=== PATIENT | male | born 1995 | race Caucasian/White ===

== ENCOUNTER 2020-01-11 19:34 | Emergency (ER) | payer OTHER ==
[~2020-01-11] VITALS: Ht 172.7 cm; Wt 90.8 kg
[2020-01-11] MEDS ORDERED: IBUP-1022 PO (21:04)
[2020-01-11 21:11] VITALS: BP 144/81
--- NOTE | 2020-01-11 21:49 | REPVR ---
PROCEDURE INFORMATION: Exam: XR Right Foot Complete Exam date and time: 01/11/2020 7:43 PM Age: 24 years old Clinical indication: Other: Injury TECHNIQUE: Imaging protocol: XR Right foot. Views: 3 or more views. COMPARISON: No relevant prior studies available. FINDINGS: Bones/joints: Normal. No fracture. Soft tissues: Mild soft tissue swelling on the dorsum of the foot. IMPRESSION: Mild soft tissue swelling on the dorsum of the forefoot. Electronically signed by: Doris Hutton On 01/11/2020 21:48:49 PM
== END 2020-01-11 21:26 | disposition home or self-care (01) ==
LOC: M ED 19:34
DX: S90.121A Contusion of right lesser toe(s) without damage to nail, initial encounter (principal); W20.8XXA Other cause of strike by thrown, projected or falling object, initial encounter; Y92.099 Unspecified place in other non-institutional residence as the place of occurrence of the external cause; Y93.9 Activity, unspecified; Y99.9 Unspecified external cause status